=== PATIENT | female | born 1980 | race Caucasian/White ===

== ENCOUNTER 2017-08-09 10:42 | Outpatient (CLI) | payer SELFPAY | END 2017-08-09 20:07 | disposition home or self-care (01) | LOC: SMA 10:42 | DX: Z12.31 Encounter for screening mammogram for malignant neoplasm of breast (principal) | CPT/HCPCS: G0202 ==

== ENCOUNTER 2018-07-18 11:23 | Outpatient (CLI) | payer SELFPAY | END 2018-07-18 19:27 | disposition home or self-care (01) | LOC: SMA 11:23 | DX: Z12.31 Encounter for screening mammogram for malignant neoplasm of breast (principal); R92.1 Mammographic calcification found on diagnostic imaging of breast | CPT/HCPCS: 77067 ==

== ENCOUNTER 2019-07-22 11:53 | Outpatient (CLI) | payer SELFPAY | END 2019-07-22 19:48 | disposition home or self-care (01) | LOC: SMA 11:53 | PROVIDERS: ATTEND Radiology Diagnostic Radiology | DX: Z12.31 Encounter for screening mammogram for malignant neoplasm of breast (principal) | CPT/HCPCS: 77067 ==